=== PATIENT | female | born 1990 | race Caucasian/White ===

== ENCOUNTER 2016-08-04 14:54 | Emergency (ER) | payer SELFPAY ==
[~2016-08-04] VITALS: Ht 165.1 cm; Wt 67.4 kg
[2016-08-04] MEDS ORDERED: IMPLANON (15:18)
[2016-08-04 15:38] VITALS: BP 105/52
== END 2016-08-04 15:43 | disposition left against medical advice (07) ==
LOC: EME 14:54
DX: Z02.89 Encounter for other administrative examinations (principal); Z53.20 Procedure and treatment not carried out because of patient's decision for unspecified reasons; F17.200 Nicotine dependence, unspecified, uncomplicated; Z79.3 Long term (current) use of hormonal contraceptives
CPT/HCPCS: 99281; 99284